=== PATIENT | female | born 1995 | race Caucasian/White ===

== ENCOUNTER → 2017-11-22 | Outpatient (CLI) | payer BC ==
[~2017-11-22] MED LIST: AMOCLA200S PO; AMOX250CH PO; AMOX500 PO; BIRTH CONTROL PILLS; CODACEE120 PO; HYDACE5 PO; MONT5TCH PO; MULVITMIND PO; Nortriptyline H10 MG PO; PROCODE120; PROCODE120 PO; RXANTBENOT AU; Zithromax250 MG PO
== END | disposition home or self-care (01) ==
LOC: LAB SHORT 16:35 → LAB 16:35
DX: R30.0 Dysuria (principal)
CPT/HCPCS: 87086